=== PATIENT | female | born 1960 | race Caucasian/White ===

== ENCOUNTER 2021-07-23 10:50 | Emergency (ER) | payer MEDICARE, OTHER ==
[2021-07-23 11:18] VITALS: TEMP 98.6
[2021-07-23] MEDS ORDERED: SODIUM CHLORIDE 0.9% 1,000 ML IV STA (13:12)
--- NOTE | 2021-07-23 13:12 | ED ---
General Adult HPI - General Chief complaint: Upper Respiratory Infection Stated complaint: Covid+/BAM Time Seen by Provider: 07/23/21 12:39 Source: patient, RN notes reviewed Mode of arrival: ambulatory Limitations: physical limitation - History of Present Illness Initial comments: 61-year-old female with a past medical history of COPD and oxygen dependency presents to the emergency department requesting monoclonal antibody infusion. Patient states her symptoms began 3 days ago with cough, body aches, and fatigue. Patient states she had a positive test yesterday. States her shortness of breath is not worsened at this time. Has had intermittent fevers which she has been treating with Tylenol. Complains of decreased appetite and mild headache. Had one episode of nausea and vomiting. Declines need for anything for pain or nausea at this time. Denies dizziness, chest tightness, abdominal pain, diarrhea, or dysuria. - Related Data Allergies Allergy/AdvReac Type Severity Reaction Status Date / Time No Known Allergies Allergy Verified 07/23/21 11:18 Review of Systems ROS Statement: Those systems with pertinent positive or pertinent negative responses have been documented in the HPI. ROS Other: All systems not noted in ROS Statement are negative. Past Medical History Past Medical History: Coronary Artery Disease (CAD), COPD, CVA/TIA, Hyperlipidemia, Hypertension Additional Past Medical History / Comment(s): oxygen dependent at 3l, History of Any Multi-Drug Resistant Organisms: None Reported Past Surgical History: Appendectomy Past Psychological History: No Psychological Hx Reported Smoking Status: Former smoker Past Alcohol Use History: None Reported Past Drug Use History: None Reported General Exam Limitations: physical limitation General appearance: alert, in no apparent distress, other (Developed, well- nourished female in no acute distress. Initial temperature 98.6, pulse 72, respirations 20, blood pressure 109/62, pulse ox 100% on 3 L.) ENT exam: Present: normal exam, normal oropharynx, mucous membranes moist Respiratory exam: Present: normal lung sounds bilaterally, other (Oxygen via nasal cannula at 3 L per home regimen). Absent: respiratory distress, wheezes, rales, rhonchi, stridor Cardiovascular Exam: Present: regular rate, normal rhythm, normal heart sounds. Absent: systolic murmur, diastolic murmur, rubs, gallop, clicks GI/Abdominal exam: Present: soft, normal bowel sounds. Absent: distended, tenderness, guarding, rebound, rigid Neurological exam: Present: alert, oriented X3, CN II-XII intact Psychiatric exam: Present: normal affect, normal mood Skin exam: Present: warm, dry, intact, normal color Course Vital Signs 07/23/21 07/23/21 11:13 16:13 Temperature 98.6 F Pulse Rate 72 62 Respiratory 20 18 Rate Blood Pressure 109/62 127/75 O2 Sat by Pulse 100 96 Oximetry Medical Decision Making - Medical Decision Making 61-year-old female with a history of COPD, oxygen dependency, and hypertension presents to the emergency department requesting the monoclonal antibody infusion. Patient tested positive for Covid today and provides appropriate documentation. States she developed symptoms on the including cough, headache, body aches, and one episode of nausea and vomiting. Upon exam, patient is well-appearing and in no acute distress. She is wearing oxygen via nasal cannula at 4 L per her home regimen. Patient does have a nonprotective congested cough. She is afebrile and not tachycardic nor tachypneic. Oxygen saturation has been 93% or greater. Chest x-ray was obtained and shows no acute process. Risks and benefits of monoclonal antibody infusion were discussed; patient was agreeable and tolerated the infusion without any adverse side effect. Patient was also given a liter of IV fluids due to her decreased oral intake. She will be discharged home with strict return parameters. Instructed to isolate to not receive her booster for 90 days. Encouraged to follow up with her PCP or pulp roller via telephone or video visit. Patient verbalizes understanding and agrees with this plan. Patient's care was discussed with my attending Dr. Herrera. - Radiology Data Radiology results: report reviewed, image reviewed Two-view chest x-ray was obtained. Report was reviewed in its entirety. Impression per Dr. Blanchard is no evidence for acute pulmonary disease. Disposition Clinical Impression: COVID-19 Disposition: HOME SELF-CARE Condition: Stable Instructions (If sedation given, give patient instructions): Coronavirus Disease 2019 (COVID-19) Additional Instructions: Continue your regular home medication regimen. May take Tylenol or Motrin as needed for fever or body aches. You should continue to isolate for 10 days from symptom onset. Take vitamin C, vitamin D, and Zinc few are not already taking a multivitamin. Consider telephone or video visit for follow-up with your pulp roller or PCP on Monday. Return to the emergency department with any new, worsening, or concerning symptoms. Is patient prescribed a controlled substance at d/c from ED?: No Referrals: Gustavo Parr MD [Primary Care Provider] - 1-2 days Time of Disposition: 15:42
[2021-07-23] MEDS ORDERED: BAMLANIVIMAB (EUA) 700 MG, ETESEVIMAB (EUA) 1,400 MG in SODIUM CHLORIDE 0.9% 100 ML IVPB ONE (13:30)
[2021-07-23] MEDS ORDERED: SODIUM CHLORIDE 0.9% 50 ML IVPB ONE (14:00)
--- NOTE | 2021-07-23 14:07 | XR ---
EXAMINATION TYPE: XR chest 2V DATE OF EXAM: 07/23/2021 COMPARISON: NONE HISTORY: Shortness of breath TECHNIQUE: Frontal and lateral views of the chest are obtained. FINDINGS: Scattered senescent parenchymal changes noted. Hyperinflation compatible with COPD. No evidence for infiltrate. No evidence for atelectasis. Heart size is stable. Mediastinal structures are stable and grossly unremarkable. No evidence for hilar prominence. Degenerative changes dorsal spine. IMPRESSION: 1. No evidence for acute pulmonary disease.
[2021-07-23 16:14] VITALS: BP 127/75; PULSE 62; RESP 18
== END 2021-07-23 16:14 | disposition home or self-care (01) ==
LOC: EC 10:50
DX: U07.1 COVID-19 (principal); I10 Essential (primary) hypertension; J44.9 Chronic obstructive pulmonary disease, unspecified; Z99.81 Dependence on supplemental oxygen; Z87.891 Personal history of nicotine dependence
CPT/HCPCS: 71046; 99284; 96360; J3490